=== PATIENT | male | born 1945 | race Caucasian/White ===

== ENCOUNTER 2021-05-14 17:28 | Emergency (ER) | payer MEDICARE, BC ==
[2021-05-14] MEDS ORDERED: Sodium Chloride 0.9% 10 ML Syringe FLUSH PRN (17:59)
[2021-05-14] MEDS ORDERED: Sodium Chloride 0.9% 500 ML IV ONE (17:59)
[2021-05-14] MEDS ORDERED: HYDROmorphone 1 MG/ML Syringe IVPUSH ONE (18:00)
[2021-05-14] MEDS ORDERED: Metoclopramide 10 MG/2 ML SDV IVPUSH ONE (18:00)
--- NOTE | 2021-05-14 18:37 | EDM.PDOC ---
ED HPI GENERAL MEDICAL PROBLEM - General Chief Complaint: Genitourinary Problem Stated Complaint: BLOOD IN URINE Time Seen by Provider: 05/14/21 17:37 Source of Information: Reports: Patient History Limitations: Reports: No Limitations - History of Present Illness INITIAL COMMENTS - FREE TEXT/NARRATIVE: 75-year-old male presents the emergency department with hematuria. Patient states that this started about 8 days ago with vague left-sided flank pain. He states he does have a history of kidney stones in the past, the last one being approximately 1 year ago. He states they have always been on the right side however. He states that over the course of the past 2 days the flank pain has gotten significantly worse he states it rates from his left flank around his abdomen into his left groin. He states that then radiates across to his right groin and back up into his right flank. He states over the last couple of days that he has had more difficulty urinating. He denies any frequency or urgency. Denies any recent fever or chills. He states he has had nausea which started last evening but no vomiting. He has not had any abdominal pain. He has not had any diarrhea or constipation. Patient is visiting [place] here from [place]. He does have a significant cardiac history. His meds include metoprolol, furosemide and pressor gel among others. Bladder Pain Score (Numeric/FACES): 6 - Related Data Allergies Allergy/AdvReac Type Severity Reaction Status Date / Time No Known Allergies Allergy Verified 05/14/21 17:46 Home Meds: Home Meds Evolocumab [Repatha Sureclick] 140 mg SQ ASDIRECTED 05/14/21 [History] Furosemide [Lasix] 20 mg PO DAILY 05/14/21 [History] Glimepiride 2 mg PO DAILY 05/14/21 [History] Isosorbide Mononitrate [Imdur] 30 mg PO DAILY 05/14/21 [History] Metoprolol Succinate 100 mg PO DAILY 05/14/21 [History] Nitroglycerin 0.4 mg SL ASDIRECTED 05/14/21 [History] Prasugrel HCl [Effient] 10 mg PO DAILY 05/14/21 [History] atorvaSTATin [Lipitor] 10 mg PO DAILY 05/14/21 [History] metFORMIN [Glucophage XR] 1,000 mg PO BIDMEALS 05/14/21 [History] Past Medical History Cardiovascular History: Reports: High Cholesterol, Hypertension Endocrine/Metabolic History: Reports: Diabetes, Type II - Past Surgical History Cardiovascular Surgical History: Reports: Coronary Artery Bypass Social & Family History - Tobacco Use Tobacco Use Status *Q: Never Tobacco User - Recreational Drug Use Recreational Drug Use: No ED ROS GENERAL - Review of Systems Review Of Systems: Comprehensive ROS is negative, except as noted in HPI. ED EXAM, RENAL/ - Physical Exam Exam: See Below Exam Limited By: No Limitations General Appearance: Alert, WD/WN, No Apparent Distress Ears: Normal External Exam, Hearing Grossly Normal Nose: Normal Inspection Throat/Mouth: Normal Inspection, Normal Lips, Normal Voice, No Airway Compromise Head: Atraumatic, Normocephalic Neck: Normal Inspection, Supple Respiratory/Chest: No Respiratory Distress, Lungs Clear, Normal Breath Sounds, No Accessory Muscle Use, Chest Non-Tender Cardiovascular: Normal Peripheral Pulses, Regular Rate, Rhythm, No Edema, No Murmur GI/Abdominal: Normal Bowel Sounds, Soft, Non-Tender, No Distention (Male) Exam: Deferred Rectal (Males) Exam: Deferred Back Exam: Normal Inspection, Full Range of Motion Extremities: Normal Inspection, No Pedal Edema Neurological: Alert, Oriented, Normal Cognition Psychiatric: Normal Affect, Normal Mood Skin Exam: Warm, Dry, Intact, Normal Color, No Rash Lymphatic: No Adenopathy Course - Vital Signs Text/Narrative:: 75-year-old male with hematuria x8 days. Flank pain that has gradually worsened over the course of the past 8 days. Denies any urinary symptoms. He does have a history of kidney stones in the past most recently being about a year ago. I have ordered labs to include a CBC, CMP, urinalysis with micro and culture if indicated. Give him 500 cc bolus of normal saline as the patient does have a history of OK and heart failure. We will also give him Dilaudid for pain and Reglan 7.5 mg for nausea. I have also ordered a CT of the abdomen pelvis without contrast stone protocol. Last Recorded V/S: Last Vital Signs Temp 98.7 F 05/14/21 17:44 Pulse 68 05/14/21 17:44 Resp 16 05/14/21 17:44 BP 151/80 H 05/14/21 17:44 Pulse Ox 99 05/14/21 17:44 - Orders/Labs/Meds Orders: Active Orders 24 hr Category Date Time Status Abdomen Pelvis wo Cont [CT] Stat Exams 05/14/21 18:01 Taken Sodium Chloride 0.9% [Saline Flush] Med 05/14/21 17:59 Active 10 ml FLUSH ASDIRECTED PRN Saline Lock Insert [OM.PC] Stat Oth 05/14/21 17:59 Ordered Medication Orders Sodium Chloride (Sodium Chloride 0.9% 10 Ml Syringe) 10 ml FLUSH ASDIRECTED PRN PRN Reason: Keep Vein Open Last Admin: 05/14/21 18:13 Dose: 10 ml Documented by: SHAYAN Labs: Laboratory Tests 05/14/21 05/14/21 05/14/21 Range/Units 18:05 18:05 19:15 WBC 9.43 H (4.23-9.07) K/mm3 RBC 3.81 L (4.63-6.08) M/mm3 Hgb 12.0 L (13.7-17.5) gm/dl Hct 35.7 L (40.1-51.0) % MCV 93.7 H (79.0-92.2) fl MCH 31.5 (25.7-32.2) pg MCHC 33.6 (32.2-35.5) g/dl RDW Std Deviation 43.7 (35.1-43.9) fL Plt Count 306 (163-337) K/mm3 MPV 9.1 L (9.4-12.3) fl Neut % (Auto) 77.7 H (34.0-67.9) % Lymph % (Auto) 15.5 L (21.8-53.1) % [place] % (Auto) 5.9 (5.3-12.2) % Eos % (Auto) 0.4 L (0.8-7.0) Baso % (Auto) 0.3 (0.1-1.2) % Neut # (Auto) 7.32 H (1.78-5.38) K/mm3 Lymph # (Auto) 1.46 (1.32-3.57) K/mm3 [place] # (Auto) 0.56 (0.30-0.82) K/mm3 Eos # (Auto) 0.04 (0.04-0.54) K/mm3 Baso # (Auto) 0.03 (0.01-0.08) K/mm3 Sodium 139 (136-145) mEq/L Potassium 4.3 (3.5-5.1) mEq/L Chloride 103 (98-107) mEq/L Carbon Dioxide 23 (21-32) mEq/L Anion Gap 17.3 H (5-15) BUN 26 H (7-18) mg/dL Creatinine 1.6 H (0.7-1.3) mg/dL Est Cr Clr Drug Dosing 45.13 mL/min Estimated GFR (MDRD) 43 (>60) mL/min BUN/Creatinine Ratio 16.3 (14-18) Glucose 198 H (70-99) mg/dL Calcium 8.7 (8.5-10.1) mg/dL Magnesium 1.3 L (1.8-2.4) mg/dL Total Bilirubin 0.8 (0.2-1.0) mg/dL AST 18 (15-37) U/L ALT 23 (16-63) U/L Alkaline Phosphatase 68 (46-116) U/L C-Reactive Protein <0.2 (<1.0) mg/dL Total Protein 6.9 (6.4-8.2) g/dl Albumin 3.8 (3.4-5.0) g/dl Globulin 3.1 gm/dL Albumin/Globulin Ratio 1.2 (1-2) Urine Color Yellow (Yellow) Urine Appearance Slt cloudy H (Clear) Urine pH 5.5 (5.0-8.0) Ur Specific [place] > or = 1.030 (1.005-1.030) Urine Protein 1+ H (Negative) Urine Glucose (UA) Trace H (Negative) Urine Ketones 2+ H (Negative) Urine Occult Blood 3+ H (Negative) Urine Nitrite Negative (Negative) Urine Bilirubin Negative (Negative) Urine Urobilinogen 0.2 (0.2-1.0) Ur Leukocyte Esterase Negative (Negative) U Hyaline Cast (Auto) 0-5 (0-5) /lpf Urine RBC 50-75 H (0-5) /hpf Urine WBC 0-5 (0-5) /hpf Ur Epithelial Cells 0-5 (0-5) /hpf Urine Bacteria Moderate H (FEW) /hpf Urine Mucus Few (FEW) /hpf Meds: Medications Generic Name Dose Route Start Last Admin Trade Name Destinee PRN Reason Stop Dose Admin Sodium Chloride 10 ml 05/14/21 17:59 05/14/21 18:13 Sodium Chloride 0.9% 10 Ml Syringe FLUSH 10 ml ASDIRECTED PRN Administration Keep Vein Open Discontinued Medications Generic Name Dose Route Start Last Admin Trade Name Jerryq PRN Reason Stop Dose Admin Hydromorphone HCl 1 mg 05/14/21 18:00 05/14/21 18:12 Hydromorphone 1 Mg/Ml Syringe IVPUSH 05/14/21 18:01 1 mg ONETIME ONE Administration Hydromorphone HCl 0.5 mg 05/14/21 19:16 05/14/21 19:21 Hydromorphone 0.5 Mg/0.5 Ml Syringe IVPUSH 05/14/21 19:17 0.5 mg ONETIME ONE Administration Sodium Chloride 500 mls @ 999 mls/hr 05/14/21 17:59 05/14/21 18:13 Normal Saline IV 05/14/21 18:29 999 mls/hr .BOLUS ONE Administration Metoclopramide HCl 7.5 mg 05/14/21 18:00 05/14/21 18:12 Metoclopramide 10 Mg/2 Ml Sdv IVPUSH 05/14/21 18:01 7.5 mg ONETIME ONE Administration Tamsulosin HCl 0.4 mg 05/14/21 19:23 05/14/21 19:44 Tamsulosin 0.4 Mg Cap.Er PO 05/14/21 19:24 0.4 mg ONETIME ONE Administration - Re-Assessments/Exams Free Text/Narrative Re-Assessment/Exam: 05/14/21 19:12 vRad radiologist impression lungs: Dependent atelectasis at the lung bases. Mediastinal space: Suggestion of small hiatal hernia. Liver: Normal. No mass. Gallbladder and bile ducts: Normal. No calcified stones. No ductal dilation. Pancreas: Normal. No ductal dilation. Spleen: Normal. No splenomegaly. Adrenal glands: Normal. No mass. Kidneys and ureters: 2 cm probable cyst lower pole of the left kidney. Not well evaluated without contrast; 1.4 cm probable cyst posterior right kidney. Bilateral perinephric stranding. New line 6 mm calculus lower 3rd right ureter with moderate right hydronephrosis and hydroureter. Stomach and bowel: Colonic diverticula. Moderate amount of stool throughout the colon. Appendix: No evidence of appendicitis. Intraperitoneal space: Unremarkable. No free air. No significant fluid collection. Vasculature: Moderate atherosclerotic changes of the abdominal aorta and branches. Lymph nodes: Unremarkable. No enlarged lymph nodes. Urinary bladder: Unremarkable as visualized. Reproductive: Unremarkable as visualized. Bones/joints: Sternotomy wires. Soft tissues: Bilateral inguinal hernias. Containing fat. Umbilical hernia containing fat. Impression: 1. 6 mm calculus distal 3rd right ureter with moderate right hydronephrosis and hydroureter. 05/14/21 19:15 Hematology reveals a WBC of 9.43, hemoglobin 12.0, hematocrit 35.7, platelet count 306, Chemistry reveals a sodium of 139, potassium 4.3, carbon dioxide 23, anion gap 17.3, BUN 26, creatinine 1.6, glucose 198, magnesium 1.3, C-reactive protein less than 0.2 Nursing staff just notifies me that urinalysis has been collected. Patient is also still having significant amount of pain. I will give him ano ther half milligram of Dilaudid. 05/14/21 19:48 Urinalysis reveals 1+ protein, trace of glucose, 2+ ketones, 3+ blood, nitrite negative, leukocyte Estrace negative, urine RBC 50-75, urine WBC 0-5, moderate bacteria. 05/14/211951 I have placed a call to [facility] to speak with the stonemason supervisor. The 1 call nurse tells me that they will have to call me back as they were on the phone with other calls. 05/14/21 20:39 [facility] returned my call. I spoke with Urologist electronics warfare technician, Dr. Arboleda, and he is not concerned with the patient's renal function or the size of the patient's stone. He states that patient can be seen at the clinic with his own urologist or they will try and fit him in to [facility] sometime this week if the patient is not planning on returning to [place] anytime soon. I discussed this plan with the patient and his and they state that they are leaving to travel back home on Saturday. He states he does already see a urologist and they will schedule an appointment first thing Saturday morning so he can follow-up as soon as they get home. In the meantime I am going to give the patient a prescription for Flomax to be taken daily. I will also send a prescription with him for Percocet 1 tab every 6 hours as needed for pain. I have also educated them on the fact that the Percocet may cause constipation. Departure - Departure Time of Disposition: 20:41 Disposition: Home, Self-Care 01 Condition: Good Clinical Impression: Kidney stone - Discharge Information Instructions: Pain Medicine Instructions, [id number], Kidney Stones, [id number] Referrals: PCP,Not In Area [Primary Care Provider] - Forms: ED Department Discharge Additional Instructions: You were seen in the emergency department today with left and right flank pain. Labs were completed which did show you had a slightly elevated creatinine level at 1.6. Urinalysis was unremarkable. However it did show blood in your urine. But no infection. CT scan did show a 6 mm stone in the distal third of the right ureter. I did speak with the urologist on-call at [facility] in [place] and he recommended follow-up with them later this week or if you are returning home soon to follow-up with your urologist. You were given IV fluids, pain medication and Flomax while in the emergency department. I have given you a prescription for Flomax 0.4 mg tabs to be taken daily. I have also given you a prescription for Percocet, you may take 1 tab every 6 hours as needed for pain. Keep in mind that this medication will make you drowsy so you cannot drive or operate any machinery while taking this. Also keep in mind that this medication may cause constipation if you are frequently taking it. It is recommended that you add a stool softener to your regimen as well. As discussed you need to be drinking plenty of fluids and decrease the caffeine and soda intake. Sepsis Event Note (ED) - Evaluation Sepsis Screening Result: No Definite Risk - Focused Exam Vital Signs: Vital Signs Temp Pulse Resp BP Pulse Ox 05/14/21 17:44 98.7 F 68 16 151/80 H 99 - My Orders Last 24 Hours: My Active Orders 05/14/21 17:59 Sodium Chloride 0.9% [Saline Flush] 10 ml FLUSH ASDIRECTED PRN Saline Lock Insert [OM.PC] Stat 05/14/21 18:01 Abdomen Pelvis wo Cont [CT] Stat - Assessment/Plan Last 24 Hours: My Active Orders 05/14/21 17:59 Sodium Chloride 0.9% [Saline Flush] 10 ml FLUSH ASDIRECTED PRN Saline Lock Insert [OM.PC] Stat 05/14/21 18:01 Abdomen Pelvis wo Cont [CT] Stat
[2021-05-14] MEDS ORDERED: HYDROmorphone 0.5 MG/0.5 ML Syringe IVPUSH ONE (19:16)
[2021-05-14] MEDS ORDERED: Tamsulosin 0.4 MG Cap.ER PO ONE (19:23)
--- NOTE | 2021-05-15 13:14 | CT ---
CT abdomen and pelvis Technique: Multiple axial sections were obtained from above the dome of the diaphragm inferiorly through the pubic symphysis. Intravenous contrast was not utilized. Reconstructed coronal and sagittal images were obtained. Comparison: No prior abdominal imaging is available. Findings: Slight atelectasis is seen posteriorly within both lung bases. Right kidney shows dilated ureter which is caused by a distal right ureteral stone measuring approximately 6 mm. Other portions of the ureters show no additional calcifications. Cyst is seen within the right kidney measuring about 2.6 cm in size. Cyst is also noted within the left kidney measuring approximately 2.2 cm in size. Small cyst also is noted inferiorly within the right kidney measuring approximately 1.5 cm. Noncontrast appearance of the liver shows no focal abnormality. Spleen shows a small calcification compatible with an incidental granuloma. Spleen size is normal. Adrenal glands show no nodule. No abnormality is appreciated within the pancreas. Abdominal aorta shows atherosclerotic calcification with no aneurysm. No retroperitoneal adenopathy is seen. Gallbladder contains no calcified gallstones. No mesenteric abnormalities are seen. Appendix is not visualized with certainty. Scattered diverticuli are scattered throughout the colon without inflammatory change or diverticulitis. Bone window settings were reviewed. Scattered degenerative change is noted throughout the spine. Degenerative change is seen within the sacroiliac joints. No acute osseous abnormality is appreciated. Impression: 1. 6 mm obstructing stone within the distal right ureter causing proximal hydronephrosis. 2. Small cysts within both kidneys. 3. Scattered diverticuli within the colon without inflammatory change. 4. Other findings believed to be incidental as noted above. Diagnostic code #3 I agree with preliminary report from [facility], finalized on 05/14/21, 8:00 PM CDT, code 1
== END 2021-05-14 21:00 | disposition home or self-care (01) ==
LOC: JD.ED 17:28
DX: N13.2 Hydronephrosis with renal and ureteral calculous obstruction (principal); E78.00 Pure hypercholesterolemia, unspecified; I10 Essential (primary) hypertension; E11.9 Type 2 diabetes mellitus without complications; Z79.84 Long term (current) use of oral hypoglycemic drugs; Z79.899 Other long term (current) drug therapy
CPT/HCPCS: 36415; 74176; 80053; 81001; 83735; 85025; 86140; 96374; 99284; A9270; J1170; J2765; J7030; 96375; 96376